=== PATIENT | male | born 1940 | race Caucasian/White ===

== ENCOUNTER 2022-05-23 10:07 | Emergency (ER) | payer MEDICARE, OTHER ==
[~2022-05-23] VITALS: Ht 172.7 cm; Wt 76.4 kg
[2022-05-23] MEDS ORDERED: LIDOCAINE 2%/EPI 1:100,000 inj. Multi-dose 20 ML VIAL IJ ONE (10:45)
[2022-05-23] MEDS ORDERED: bacitracin 15gm ointment TP ONE (10:45)
[2022-05-23 11:11] VITALS: BP 151/106
[2022-05-23] MEDS ORDERED: TETanus/Pertussis (Acell)/Diphther VAC/PF (Tdap-Adult) 0.5ml syringe IMVAC ONE (11:25)
[2022-05-23] MEDS ORDERED: CEPH250T PO (13:10)
== END 2022-05-23 13:23 | disposition home or self-care (01) ==
LOC: ER 10:09
DX: S81.812A Laceration without foreign body, left lower leg, initial encounter (principal); E78.00 Pure hypercholesterolemia, unspecified; I51.9 Heart disease, unspecified; J45.909 Unspecified asthma, uncomplicated; Z88.0 Allergy status to penicillin; Z79.899 Other long term (current) drug therapy; W19.XXXA Unspecified fall, initial encounter; Y93.89 Activity, other specified; Y92.89 Other specified places as the place of occurrence of the external cause; Y99.8 Other external cause status
CPT/HCPCS: 12002; 90471; 90715; 99283; J7030; A6258; A6449

== ENCOUNTER 2022-06-16 12:53 | Emergency (ER) | payer MEDICARE, OTHER ==
[~2022-06-16] VITALS: Ht 172.7 cm; Wt 76.0 kg
[2022-06-16 12:55] VITALS: BP 156/95
[2022-06-16] MEDS ORDERED: sulfamethoxazole/trimethoprim DS (800/160mg) tablet PO ONE (14:35)
[2022-06-16] MEDS ORDERED: SULF1TAB49 PO ×3 (14:55→15:08)
== END 2022-06-16 15:11 | disposition home or self-care (01) ==
LOC: ER 12:53
DX: L03.116 Cellulitis of left lower limb (principal); J45.909 Unspecified asthma, uncomplicated; Z88.0 Allergy status to penicillin; Z79.899 Other long term (current) drug therapy
CPT/HCPCS: 99283; A6258; A6449; J7030

== ENCOUNTER 2022-07-23 05:36 | Inpatient (IN) | payer MEDICARE, OTHER ==
[2022-07-18 15:15] LABS: BASOPHILS % (AUTO) 0.4 % (0-1); EOSINOPHILS # (AUTO) 0.1 X10'3 (0-0.9); EOSINOPHILS % (AUTO) 0.9 % (0-6); LYMPHOCYTES # (AUTO) 2.3 X10'3 (1.1-4.8); LYMPHOCYTES % (AUTO) 24.9 % (21-51); MEAN CORPUSCULAR HEMOGLOBIN 29.9 PG (27.0-31.0); MEAN CORPUSCULAR HGB CONC 32.9 g/dL (33.0-36.5); MEAN PLATELET VOLUME 6.8 FL (7.4-10.4); MONOCYTES # (AUTO) 0.9 X10'3 (0-0.9); MONOCYTES % (AUTO) 10.1 % (2-12); NEUTROPHILS # (AUTO) 5.9 X10'3 (1.8-7.7); NEUTROPHILS % (AUTO) 63.7 % (42-75); PRE OP HEMATOCRIT 40.9 % (42.0-52.0); PRE OP HEMOGLOBIN 13.4 g/dL (14.0-17.9); PRE OP PLATELET COUNT 176 X10'3 (140-440); RED CELL DISTRIBUTION WIDTH 14.6 % (11.5-14.5)
[2022-07-18 15:16] LABS: CLARITY,URINE CLEAR (Clear); COLOR,URINE YELLOW (Yellow); GLUCOSE, URINE NEGATIVE (Neg); KETONES,URINE NEGATIVE (Neg); LEUKOCYTE ESTERASE ,URINE NEGATIVE (Neg); NITRITES, URINE NEGATIVE (Neg); OCCULT BLOOD,URINE NEGATIVE (Neg); PH,URINE 5.5 (4.8-8.0); PROTEIN,URINE NEGATIVE (Neg); UROBILINOGEN,URINE 0.2 E.U/dL (0.2-1.0)
[2022-07-18 15:18] LABS: UA COLLECTION TYPE CLN CATCH MIDSTREAM
[2022-07-18 15:28] LABS: PRE OP INR 1.1 INR; PRE OP PROTIME 11.4 SECONDS (9.0-12.0)
[2022-07-18 15:32] LABS: ALBUMIN 3.9 G/DL (3.4-5.0); ALBUMIN/GLOBULIN RATIO 1.4 (1.1-1.5); ALKALINE PHOSPHATASE 114 IU/L (46-116); BLOOD UREA NITROGEN 35 MG/DL (7-18); BUN/CREATININE RATIO 24.8 (10.0-20.0); CALCIUM 8.8 MG/DL (8.5-10.1); CHLORIDE 107 MMOL/L (99-107); CREATININE 1.41 MG/DL (0.60-1.10); PRE OP ALT 44 U/L (30-65); PRE OP ANION GAP 5 (8-16); PRE OP AST 42 U/L (10-37); PRE OP BILIRUB, TOTAL 0.7 MG/DL (0.0-1.0); PRE OP GLUCOSE 114 MG/DL (70-104); PRE OP POTASSIUM 4.2 MMOL/L (3.4-5.1); PRE OP SODIUM 141 MMOL/L (135-145); TOTAL CARBON DIOXIDE 28.6 MMOL/L (24-32); TOTAL PROTEIN 6.7 G/DL (6.4-8.2); eGFR 48 ML/MIN
[2022-07-23] VITALS (23 sets, daily range): BP systolic 117–183; BP diastolic 70–99
[~2022-07-23] VITALS: Ht 172.7 cm; Wt 77.2 kg
[~2022-07-23 05:36] MED LIST: AREDS 2 PO; DOCUMENT DATE & TIME OF BETA-BLOCKER PO ONE; FINA5TAB11 PO; FLO0.4C PO; LUTEIN PO; METO25TA6 PO; MULT-227 PO; PANT40TA54 PO; ROSU20TA73 PO; famotidine 20mg tablet PO ONE; ringers solution, lacted 1,000 ML IV SCH
[2022-07-23] MEDS ORDERED: ALBU6.7H14 INH (06:21)
[2022-07-23] MEDS ORDERED: BUDE10.2 INH (06:23)
[2022-07-23] MEDS ORDERED: ondansetron/PF 4mg/2ml inj IV PRN ×2 (07:00→07:30)
[2022-07-23] MEDS ORDERED: HYDROcodone/acetaminophen 10/325mg tab PO PRN (07:00)
[2022-07-23] MEDS ORDERED: potassium cl 20mEq in 1/2 NS 1,000 ML IV SCH (07:00)
[2022-07-23] MEDS ORDERED: diphenhydrAMINE 25mg capsule PO PRN (07:00)
[2022-07-23] MEDS ORDERED: acetaminophen 325mg tablet PO PRN (07:00)
[2022-07-23] MEDS ORDERED: naloxone 0.4 mg/ml inj IV PRN (07:00)
[2022-07-23] MEDS ORDERED: cloNIDine hcl/PF 100mcg/ml inj ONE (07:19)
[2022-07-23] MEDS ORDERED: midazolam 1 mg/ML 2ml injection ONE (07:22)
[2022-07-23] MEDS ORDERED: propofol inj 20 ML IV ONE (07:22)
[2022-07-23] MEDS ORDERED: fentaNYL/PF 50MCG/1 ML 2ML syringe ONE (07:22)
[2022-07-23] MEDS ORDERED: sevoflurane 250ml liquid IH ONE (07:27)
[2022-07-23] MEDS ORDERED: morphine 4 MG/ML inj SYRINge IV PRN (07:30)
[2022-07-23] MEDS ORDERED: morphine 2 MG/ML inj. syringe IV PRN (07:30)
[2022-07-23] MEDS ORDERED: meperidine/PF 25mg/ml syringe IV PRN ×3 (07:30)
[2022-07-23] MEDS ORDERED: proCHLORperazine 10 MG/2 ml inj IV PRN (07:30)
[2022-07-23] MEDS ORDERED: ringers solution, lacted 1,000 ML IV SCH (07:30)
[2022-07-23] MEDS ORDERED: ceFAZolin 1000mg inj ONE ×2 (07:53)
[2022-07-23] MEDS ORDERED: ePHEDrine 50MG/ML INJ. ONE (07:53)
[2022-07-23] MEDS ORDERED: tranexamic acid inj. 1,000 MG in normal saline 100ml IV soln 90 ML IV ONE (08:20)
[2022-07-23] MEDS ORDERED: vancomycin 1,000mg inj ONE (09:27)
--- NOTE | 2022-07-23 09:56 | NUR ---
Received from OR via BED IN STABLE CONDITION , accompanied by Anesthesiologist and DOCTOR PODIATRIC MEDICINE report given by DOCTOR PODIATRIC MEDICINE AND Anesthesiolgist. Addendum: 07/23/22 at 1040 by Brittany Mcclendon RN Amended: Links added.
[2022-07-23] MEDS: HYDROcodone/acetaminophen 10/325mg tab PO PRN (10:49)
--- NOTE | 2022-07-23 12:26 | NUR ---
PATIENT DISCHARGED FROM PACU IN STABLE CONDITION AFTER REPORT GIVEN TO KIMBERLYN MILLER TAKING OVER PATIENTS CARE. PATIENT TRANSFERRED TO ROOM 4024B VIA BED WITH ANGELA AND MIRA. Addendum: 07/23/22 at 1239 by Brittany Mcclendon RN Amended: Links added.
[2022-07-23] MEDS: cefazolin 2gm/D5W 100mL 100 ML IV SCH ×2 (14:18→16:00)
[2022-07-23] MEDS ORDERED: ROSUVASTATIN CALCIUM 5 MG TABLET PO SCH (21:10)
[2022-07-23] MEDS: budesonide 0.5mg/2ml UD nebule IH SCH (21:11)
[2022-07-23] MEDS ORDERED: cefazolin 2gm/D5W 100mL 100 ML IV SCH (22:00)
[2022-07-24 02:00] VITALS: BP 133/82
[2022-07-24] MEDS: albuterol 2.5 MG/3 ML nebule NEB SCH ×2 (02:00→09:00)
[2022-07-24] MEDS: HYDROcodone/acetaminophen 10/325mg tab PO PRN (05:52)
[2022-07-24 06:12] LABS: BASOPHILS % (AUTO) 0.3 % (0-1); EOSINOPHILS % (AUTO) 0.1 % (0-6); HEMATOCRIT 34.7 % (42.0-52.0); HEMOGLOBIN 11.5 g/dl (14.0-17.9); LYMPHOCYTES # (AUTO) 1.5 X10'3 (1.1-4.8); LYMPHOCYTES % (AUTO) 11.7 % (21-51); MEAN CORPUSCULAR HEMOGLOBIN 29.9 PG (27.0-31.0); MEAN CORPUSCULAR HGB CONC 33.3 g/dL (33.0-36.5); MEAN CORPUSCULAR VOLUME 89.8 FL (78-98); MONOCYTES # (AUTO) 1.3 X10'3 (0-0.9); MONOCYTES % (AUTO) 10.3 % (2-12); NEUTROPHILS # (AUTO) 9.7 X10'3 (1.8-7.7); NEUTROPHILS % (AUTO) 77.6 % (42-75); PLATELET COUNT 148 X10'3 (140-440); RED BLOOD COUNT 3.86 X10'6 (4.70-6.10); RED CELL DISTRIBUTION WIDTH 14.7 % (11.5-14.5); WHITE BLOOD COUNT 12.5 X10'3 (4.5-11.0)
[2022-07-24 06:16] LABS: ANION GAP 6 (8-16); CHLORIDE 105 MMOL/L (99-107); POTASSIUM 3.8 MMOL/L (3.5-5.1); SODIUM 138 MMOL/L (135-145); TOTAL CARBON DIOXIDE 27.4 MMOL/L (24-32)
--- NOTE | 2022-07-24 06:35 | NUR ---
Problems reprioritized. Patient report given, questions answered & plan of care reviewed with ANGELA BERRIOS.
--- NOTE | 2022-07-24 06:44 | NUR ---
Patient in room [facility] 4024. I have received report from ANGELA Hooker and had the opportunity to ask questions and assume patient care.
[2022-07-24 07:00] VITALS: BP 137/87
[2022-07-24] MEDS: aspirin 325mg tablet PO SCH ×2 (07:37→08:12)
[2022-07-24] MEDS ORDERED: multivitamins, therapeutics tablet PO SCH (08:00)
[2022-07-24] MEDS: budesonide 0.5mg/2ml UD nebule IH SCH (09:00)
[2022-07-24] MEDS ORDERED: ASPI-1 PO (10:30)
[2022-07-24] MEDS ORDERED: HYDR-3972 PO (10:30)
[2022-07-24 10:34] VITALS: BP 146/90
--- NOTE | 2022-07-24 11:36 | NUR ---
Patient alert and oriented in no apparent acute distress at this time. No complaints. Discussed with patient discharge instructions and new prescriptions. Patient verbalizes understanding of teaching. Left shoulder dressing changed. x4 [place] dressing given to patient for home. x2 cold powder pack given to patient. Patient ready for dc and waiting for his to arrive for transport home.
--- NOTE | 2022-07-24 12:09 | NUR ---
Patient dc'd with all personal belongings escorted down in wheelchair accompanied by x1 staff and . Addendum: 07/24/22 at 1218 by Brandon Johnston RN IV dc'd
[2022-07-24] MEDS ORDERED: pantoprazole 40mg Tablet.DR PO SCH (21:00)
[2022-07-24] MEDS ORDERED: finasteride 5mg tablet PO SCH (21:00)
[2022-07-24] MEDS ORDERED: metoprolol tartrate 25mg tablet PO SCH (21:00)
[2022-07-24] MEDS ORDERED: tamsulosin 0.4mg capsule PO SCH (21:00)
== END 2022-07-24 12:10 | disposition home or self-care (01) | DRG 483 ==
LOC: PAS IN 05:36 → ORTHO 4S 12:28
PROVIDERS: ADMIT Specialist; ATTEND Specialist
PROC: 0RRK00Z Replacement of Left Shoulder Joint with Reverse Ball and Socket Synthetic Substitute, Open Approach (ICD-10-PCS; principal; 2022-07-23 07:27)
DX: M19.012 Primary osteoarthritis, left shoulder (principal); M75.102 Unspecified rotator cuff tear or rupture of left shoulder, not specified as traumatic; E78.5 Hyperlipidemia, unspecified; I10 Essential (primary) hypertension; Z88.0 Allergy status to penicillin; Z79.899 Other long term (current) drug therapy; Z79.82 Long term (current) use of aspirin
CPT/HCPCS: 36415; 71046; 73020; 73030; 76000; 80051; 80053; 81003; 82948; 85025; 85610; 85730; 87081; 93005; 94760; 97161; 97530; G0378; J0690; J0735; J2250; J2704; J3010; J3370; J3490; J7120